=== PATIENT | female | born 1995 | race Caucasian/White ===

== ENCOUNTER 2021-04-14 23:08 | Emergency (ER) | payer OTHER ==
[2021-04-15 01:06] LABS: CORONAVIRUS 2019 SARS-COV-2 POSITIVE (NEGATIVE); INFLUENZA A NAA NEGATIVE (NEGATIVE)
== END 2021-04-15 01:12 | disposition home or self-care (01) ==
LOC: FER 23:08
PROVIDERS: Emergency Medicine
DX: U07.1 COVID-19 (principal); J06.9 Acute upper respiratory infection, unspecified; F17.200 Nicotine dependence, unspecified, uncomplicated; Z91.040 Latex allergy status; Z88.0 Allergy status to penicillin
CPT/HCPCS: 99283; J1885; J2405; J7030; U0002

== ENCOUNTER 2021-11-20 22:50 | Emergency (ER) | payer OTHER ==
[2021-11-20 23:38] LABS: BASOPHIL 0.4 % (0-2); EOSINOPHIL 4.5 % (0-5); HCT 41.2 % (37.0-47.0); HGB 13.5 g/dl (12.5-16.0); LYMPHOCYTE 35.1 % (15-48); MCH 29.3 pg (25.0-31.0); MCHC 32.8 g/dL (32.0-36.0); MCV 89.4 fL (78.0-100.0); MONOCYTE 5.6 % (0-12); MPV 10.9 fL (6.0-9.5); NEUTROPHIL 54.1 % (41-80); NRBC 0; PLT 240 K/uL (150-400); RBC 4.61 M/uL (4.20-5.40); RDW 14.5 % (11.5-14.0); WBC 10.3 K/uL (4.0-10.5)
[2021-11-20 23:39] LABS: BILIRUBIN NEGATIVE (NEGATIVE); BLOOD 3+ Ery/uL (NEGATIVE); CLARITY CLEAR (CLEAR); COLOR YELLOW (YELLOW); GLUCOSE (U) NORMAL (NORMAL); LEUKOCYTES NEGATIVE Leu/uL (NEGATIVE); NITRITE NEGATIVE (NEGATIVE); PROTEIN 1+ mg/dL (NEGATIVE); SPECIFIC GRAVITY 1.025 (1.001-1.030); UROBILINOGEN 0.2 mg/dL (0.2-1.0)
[2021-11-20 23:50] LABS: URINARY WBC RARE
[2021-11-20 23:51] LABS: URINARY RBC TNTC
[2021-11-20 23:54] LABS: ALBUMIN 3.1 g/dL (3.4-5.0); BILIRUBIN - TOTAL 0.2 mg/dL (0.2-1.0); BUN/CREAT RATIO (CALC) 14.3 RATIO; CREATININE 0.56 mg/dL (0.51-0.95); GLOBULIN (CALCULATION) 3.6 g/dL; POTASSIUM 3.5 mmol/L (3.5-5.1); TOTAL PROTEIN 6.7 g/dL (6.4-8.2)
== END 2021-11-21 02:15 | disposition home or self-care (01) ==
LOC: FER 22:50
PROVIDERS: Emergency Medicine
DX: O03.9 Complete or unspecified spontaneous abortion without complication (principal); Z88.0 Allergy status to penicillin; Z91.040 Latex allergy status
CPT/HCPCS: 36415; 76801; 80053; 81001; 84702; 85025